=== PATIENT | female | born 1950 | race Caucasian/White ===

== ENCOUNTER 2021-08-24 14:47 | Outpatient (CLI) | payer MEDICARE, MEDICAID, SELFPAY ==
--- NOTE | ~2021-08-24 | MM_ITS ---
EXAMINATION: MM screening [facility]arshal BI w nacho HISTORY: Screening mammogram TECHNIQUE: Craniocaudal and mediolateral oblique 3-D tomosynthesis images were obtained and synthetic 2-D images were generated. CAD analysis was submitted and interpreted. COMPARISON: No prior mammogram is available for comparison at this institution. BREAST PARENCHYMAL COMPOSITION: There are scattered areas of fibroglandular density. FINDINGS: New approximately 4 mm circumscribed mass is noted in the anterior mid to lower inner left breast. Diagnostic left mammogram is recommended, with ultrasound if required. Otherwise no suspicious mass, architectural distortion, calcification, skin thickening or retraction or significant new or developing density of either breast is evident. . IMPRESSION: 1. New 4 mm mass of left breast 2. Diagnostic left mammogram is recommended, with ultrasound if required BI-RADS Category 0: Incomplete: Needs additional imaging evaluation. Reviewed, dictated and finalized at location A.
--- NOTE | ~2021-08-24 | DEXA_ITS ---
Bone Density Report Name: ONEIL CASTILLO Age: 70 Sex: Female Ethnicity: White Date of : 1950 Indication: postmenopausal; screening for osteoporosis; height loss; asthma or emphysema; Referring Provider: OMAR CONNER Study: Bone densitometry was performed. Exam Date: August 24, 2021 Accession number: [id number] Bone Density: Region BMD T-score Z-score Classification AP Spine(L1, L2, L3) 1.008 -0.1 2.1 Normal Femoral Neck (Left) 0.656 -1.7 0.2 Osteopenia Total Hip (Left) 0.912 -0.2 1.4 Normal Femoral Neck (Right) 0.655 -1.8 0.2 Osteopenia Total Hip (Right) 0.850 -0.8 0.9 Normal Total Hip Mean 0.881 -0.5 1.2 Normal World Health Organization criteria for BMD impression classify patients as: Normal (T-score at or above -1.0), Osteopenia (T-score between -1.0 and -2.5), or Osteoporosis (T-score at or below -2.5). 10-year Fracture Risk(1): Major Osteoporotic Fracture 11% Hip Fracture 1.9% Reported Risk Factors: [place] (), Neck BMD=0.656, BMI=35.3 (1) FRAX(R) Version 3.08. Fracture probability calculated for an untreated patient. Fracture probability may be lower if the patient has received treatment. Clinical Information Provided by Patient: Has used the following medications: Vitamin D, Calcium Has the following medical conditions: Asthma or Emphysema Patient maximum height was 58 Menopause Age: 48 Drinks caffeinated beverages Onset of menses at age 12 Number of children 2 Impression: The patient has low bone mass, based on the Right Femoral Neck T-score. The patient has an estimated ten-year risk of hip fracture of 1.9% and an estimated ten-year risk of major fracture of 11%, based on the WHO FRAX algorithm. Discussion: BONE DENSITY IS LOW AT ONE OR MORE SKELETAL SITES. This patient's lowest T-score is low at one or more skeletal sites. It meets the World Health Organization's (WHO) criteria for ?low bone mass? (T-score between -1.0 and -2.5). The patient's 10-year risk of fracture as calculated by FRAX is less than the threshold where pharmacological therapy is recommended by the National Osteoporosis Foundation (NOF). However, all treatment decisions require clinical judgment and consideration of individual patient factors, including patient preferences, comorbidities, previous drug use, risk factors not captured in the FRAX model (e.g., frailty, falls, vitamin D deficiency, increased bone turnover, interval significant decline in bone density) and possible under or overestimation of fracture risk by FRAX. The patient should follow a healthful lifestyle (good nutrition with adequate calcium and vitamin D, and appropriate weight-bearing exercise). Follow-Up: Consider repeating this study in 2 to 3 years to reassess this patient's status, or sooner if there is some n
== END 2021-08-24 14:48 | disposition home or self-care (01) ==
LOC: ANHIMG 14:49
PROVIDERS: PCP Internal Medicine; Visit Provider Nurse Practitioner
DX: Z12.31 Encounter for screening mammogram for malignant neoplasm of breast (principal); Z78.0 Asymptomatic menopausal state; R92.8 Other abnormal and inconclusive findings on diagnostic imaging of breast; M85.89 Other specified disorders of bone density and structure, multiple sites
CPT/HCPCS: 77063; 77067; 77080

== ENCOUNTER 2021-08-30 12:40 | Outpatient (CLI) | payer MEDICARE, MEDICAID, SELFPAY ==
--- NOTE | ~2021-08-30 | MMUS_ITS ---
EXAMINATION: MM diagnostic harshal LT w nacho, US breast LT limited HISTORY: Follow-up left breast mass TECHNIQUE: Additional 3-D tomosynthesis images of the left breast were performed and synthetic 2-D im ages were generated. CAD analysis was submitted and interpreted. High resolution Limited left breast ultrasound was performed. COMPARISON: Comparison to multiple prior studies sequentially, with oldest reviewed study dated 03/05. BREAST PARENCHYMAL COMPOSITION: Breast composed of scattered areas of fibroglandular density FINDINGS: MAMMOGRAPHIC FINDINGS: There is a new mass in the upper inner quadrant of the left breast measuring 4 mm, middle third. No s uspicious calcifications or architectural distortion. ULTRASOUND: Limited left breast ultrasound: At 10:30, 3 cm from the nipple there is a 4 mm cyst corresponding to the mammographic abnormality. No suspicious masses by ultrasound to suggest malignancy. IMPRESSION: 1. No evidence for malignancy in the left breast. Benign finding. 2. Routine yearly screening mammogram and regular clinical breast examination are recommended. BI-RADS Category 2: Benign finding(s). Reviewed, dictated and finalized at location A. IMPRESSION: 1. No evidence for malignancy in the left breast. Benign finding. 2. Routine yearly screening mammogram and regular clinical breast examination a re recommended. BI-RADS Category 2: Benign finding(s).
== END 2021-08-30 12:41 | disposition home or self-care (01) ==
LOC: ANHIMG 12:41
PROVIDERS: PCP Internal Medicine; Visit Provider Nurse Practitioner
DX: R92.8 Other abnormal and inconclusive findings on diagnostic imaging of breast (principal); N60.02 Solitary cyst of left breast; N63.22 Unspecified lump in the left breast, upper inner quadrant
CPT/HCPCS: 76642; 77061; 77065; G0279

== ENCOUNTER 2022-12-06 23:13 | Emergency (ER) | payer MEDICARE, MEDICAID, SELFPAY ==
--- NOTE | 2022-12-06 23:14 | ECG_ITS ---
Measurements Intervals [place] Rate: 68 P: 46 ME: 138 QRS: 40 QRSD: 94 T: 59 QT: 387 QTc: 413 Interpretive Statements SINUS RHYTHM NO PREVIOUS ECG AVAILABLE FOR COMPARISON Electronically Signed On 12-07-2022 9:23:16 CDT by Negra Lovell M.D.
[2022-12-06 23:28] VITALS: BP 125/90; PULSE 69; RESP 12; TEMP 36.8; O2SAT 96
--- NOTE | 2022-12-07 | PC.NURSE ---
pt. family member up to front services agent stating, We are going to go to the doctor later. pt. wheeled out of ed. NAD
== END 2022-12-07 | disposition left against medical advice (07) ==
PROVIDERS: PCP Nurse Practitioner
DX: M25.512 Pain in left shoulder (principal)
CPT/HCPCS: 93005; 99199

== ENCOUNTER 2023-05-06 08:32 | Outpatient (CLI) | payer MEDICARE, MEDICAID, SELFPAY ==
--- NOTE | ~2023-05-06 | MM_ITS ---
EXAMINATION: MM screening [facility] BI w nacho HISTORY: Screening mammogram TECHNIQUE: Craniocaudal and mediolateral oblique 3-D tomosynthesis images were obtained and synthetic 2-D images were generated. CAD analysis was submitted and interpreted. COMPARISON: 08/30/2021, 08/24/2021, 03/16/2015 BREAST PARENCHYMAL COMPOSITION: The breasts are almost entirely fatty. FINDINGS: No suspicious mass, calcification, or architectural distortion are identified in either elvin ast to suggest malignancy. There has been no suspicious interval change. IMPRESSION: 1. No mammographic evidence of malignancy. 2. Recommend routine screening mammography in one year. BI-RADS Category 1: Negative Reviewed, dictated and finalized at location A. NESS INTELLIGENCE ANALYST
[2023-05-06 10:33] LABS: Vitamin D 25 Hydroxy 42.3 ng/mL
[2023-05-06 11:09] LABS: Alanine Aminotransferase 21 U/L (6-35); Albumin Level 4.3 g/dL (3.5-5.1); Alkaline Phosphatase 120 U/L (38-126); Anion Gap 9 mmol/L (8-16); Aspartate Amino Transferase 30 U/L (14-36); Bilirubin,Total 0.6 mg/dL (0.2-1.3); Blood Urea Nitrogen 21 mg/dL (7-17); Calcium 9.4 mg/dL (8.4-10.2); Carbon Dioxide 26 mmol/L (22-30); Chloride 107 mmol/L (98-107); Cholesterol 168 mg/dL (0-200); Estimated Glomerular Filt Rate > 60; Glucose 92 mg/dL (65-110); HDL Direct 49 mg/dL; Potassium 4.4 mmol/L (3.4-5.0); Sodium 142 mmol/L (137-145); Triglycerides 123 mg/dL (<150)
[2023-05-06 11:19] LABS: LDL Cholesterol Direct 83 mg/dL
== END 2023-05-06 08:33 | disposition home or self-care (01) ==
PROVIDERS: PCP Nurse Practitioner; Visit Provider Nurse Practitioner
DX: Z12.31 Encounter for screening mammogram for malignant neoplasm of breast (principal); E78.5 Hyperlipidemia, unspecified; E55.9 Vitamin D deficiency, unspecified
CPT/HCPCS: 36415; 77063; 77067; 80053; 80061; 82306

== ENCOUNTER 2023-10-21 12:58 | Outpatient (CLI) | payer MEDICARE, MEDICAID, SELFPAY | END 2023-10-21 12:59 | disposition home or self-care (01) | LOC: ANHAUDIO 12:59 | PROVIDERS: PCP Nurse Practitioner; Visit Provider Otolaryngology | DX: H93.19 Tinnitus, unspecified ear (principal); H90.3 Sensorineural hearing loss, bilateral | CPT/HCPCS: 92557; 92567 ==

== ENCOUNTER 2023-12-04 10:25 | Outpatient (CLI) | payer MEDICARE, MEDICAID, SELFPAY ==
--- NOTE | 2023-12-04 11:12 | ECG_ITS ---
Test Date: 2023-12-04 11:21:41 Measurements Intervals [place] Rate: 75 P: 59 CA: 150 QRS: 61 QRSD: 94 T: 69 QT: 383 QTc: 429 Interpretive Statements SINUS RHYTHM NORMAL ELECTROCARDIOGRAM No previous ECG available for comparison Electronically Signed On 12-05-2023 10:57:18 CDT by Gallo Srivastava M.D.
[2023-12-04 11:56] LABS: Hematocrit 41.1 % (37.0-47.0); Hemoglobin 13.8 g/dL (12.0-15.0); Mean Corpuscular HGB Conc 33.6 g/dl (32-36); Mean Corpuscular Hemoglobin 31.5 pg (26-34); Mean Corpuscular Volume 93.8 fl (80-100); Mean Platelet Volume 10.8 fl (7.4-10.4); Platelet Count Result 209 k/mm3 (150-375); Red Blood Count 4.38 M/mm3 (4.2-5.4); Red Cell Distribution Width 12.6 % (11.5-14.5); White Blood Count 4.7 K/mm3 (4.5-10.0)
[2023-12-04 12:08] LABS: Alanine Aminotransferase 20 U/L (6-35); Albumin Level 4.9 g/dL (3.5-5.1); Alkaline Phosphatase 118 U/L (38-126); Anion Gap 12 mmol/L (4-12); Aspartate Amino Transferase 32 U/L (14-36); Bilirubin,Total 0.7 mg/dL (0.2-1.3); Blood Urea Nitrogen 29 mg/dL (7-17); Calcium 9.6 mg/dL (8.4-10.2); Carbon Dioxide 27 mmol/L (22-30); Chloride 100 mmol/L (98-107); Cholesterol 170 mg/dL (0-200); Estimated Glomerular Filt Rate 54; Glucose 92 mg/dL (65-110); HDL Direct 42 mg/dL; Potassium 4.5 mmol/L (3.4-5.0); Sodium 139 mmol/L (137-145); Triglycerides 168 mg/dL (<150)
[2023-12-04 12:18] LABS: LDL Cholesterol Direct 82 mg/dL
[2023-12-04 14:21] LABS: Urine Cotinine NEGATIVE
== END 2023-12-04 10:26 | disposition home or self-care (01) ==
PROVIDERS: PCP Nurse Practitioner; Visit Provider Orthopaedic Surgery
DX: E78.5 Hyperlipidemia, unspecified (principal); I10 Essential (primary) hypertension; Z79.899 Other long term (current) drug therapy
CPT/HCPCS: 36415; 80053; 80061; 80307; 85027; 93005

== ENCOUNTER 2024-02-23 09:57 | Outpatient (CLI) | payer MEDICARE, MEDICAID, SELFPAY ==
[2024-02-23 12:57] LABS: Basophils Absolute Auto 0.1 K/mm3 (0.0-0.1); Basophils Percent Auto 0.6 % (0.2-1.2); Eosinophils Absolute Auto 0.2 K/mm3 (0-0.3); Eosinophils Percent Auto 2.1 % (0-4.4); Hematocrit 41.4 % (37.0-47.0); Hemoglobin 13.8 g/dL (12.0-15.0); Immature Granulocyte Absolute 0.03 K/mm3 (0.00-0.031); Immature Granulocyte Percent A 0.4 % (0-0.5); Lymphocytes Absolute Auto 1.92 K/mm3 (0.9-3.2); Lymphocytes Percent Auto 23.9 % (18.3-44.2); Mean Corpuscular HGB Conc 33.3 g/dl (32-36); Mean Corpuscular Hemoglobin 31.2 pg (26-34); Mean Corpuscular Volume 93.7 fl (80-100); Mean Platelet Volume 11.4 fl (7.4-10.4); Monocytes Absolute Auto 0.7 K/mm3 (0.1-0.6); Monocytes Percent Auto 9.1 % (2.6-8.5); Neutrophils Absolute Auto 5.1 K/mm3 (1.3-6.7); Neutrophils Percent Auto 63.9 % (45.5-73.1); Platelet Count Result 220 k/mm3 (150-375); Red Blood Count 4.42 M/mm3 (4.2-5.4); Red Cell Distribution Width 13.8 % (11.5-14.5)
[2024-02-23 13:20] LABS: Urine Cotinine NEGATIVE
[2024-02-23 13:21] LABS: Anion Gap 14 mmol/L (4-12); Blood Urea Nitrogen 30 mg/dL (7-17); Calcium 10.1 mg/dL (8.4-10.2); Carbon Dioxide 22 mmol/L (22-30); Chloride 100 mmol/L (98-107); Estimated Glomerular Filt Rate 54; Glucose 77 mg/dL (65-110); Potassium 4.6 mmol/L (3.4-5.0); Sodium 136 mmol/L (137-145)
[2024-02-23 13:27] LABS: Hemoglobin A1C 5.7 % (<5.7)
[2024-02-23 14:19] LABS: Albumin Level 4.9 g/dL (3.5-5.1)
[2024-02-23 14:31] LABS: MRSA (PCR) NOT DETECTED (NOT DETECTE)
== END 2024-02-23 09:58 | disposition home or self-care (01) ==
LOC: ANHSURGERY 10:04
PROVIDERS: Anesthesiology; PCP Nurse Practitioner; Visit Provider Orthopaedic Surgery
DX: M17.11 Unilateral primary osteoarthritis, right knee (principal); I10 Essential (primary) hypertension
CPT/HCPCS: 36415; 80048; 80307; 82040; 83036; 85025; 87641

== ENCOUNTER 2024-03-15 00:27 | Day surgery (SDC) | payer MEDICARE, MEDICAID, SELFPAY ==
[2024-02-23 10:10] VITALS: BMI 37.0
--- NOTE | 2024-02-23 10:37 | PC.NURSE ---
Report to the Outpatient Waiting Room, entrance under the green pavilion located off [facility], at time _10 AM on date 03/15/24 . Planned Procedure Time: __12 PM___NOON___.? Time changes happen often and if your time is changed the preop area will call you the afternoon before. - You and your visitor will be asked to self-screen and do not enter if you have any COVID symptoms. Please call surgeon if you need to reschedule. - A mask is optional within the hospital at this time. Patients may have clear liquids (water, carbonated beverages, clear teas, apple juice) until 3 hours prior to surgery( 9 AM) with a maximum of 20 ounces. - No food from midnight until time of surgery and no smoking - Infants may have breast milk until 4 hours before surgery, infant formula 6 hours prior to surgery. - Children will be allowed to drink immediately following surgery.? If applicable, please bring a bottle or sippy cup to assist with drinking. Juice, water, soda, and popsicles are readily available.? For infants on formula, please bring formula the day of surgery.? Pacifiers are allowed. Take only the following medications with a SIP of water on the morning of surgery: ___ANORO INHALER DO NOT STOP ANY OF YOUR OTHER PRESCRIPTION MEDICATIONS PRIOR TO SURGERY EXCEPT THE FOLLOWING Medications to discontinue per physician _PATIENT'S DAUGHTER EDGAR STATES HOLD ALL VITAMINS 7 DAYS PRE OP PER DR MUHAMMAD.LAST DOSE03/07/24 MAY CONTINUE CELEBREX MAY TAKE TYLENOL IF NEEDED FOR PAIN Please no make-up, nail [place] islander, hairspray, perfume, deodorant, or body powder the day of surgery.? No jewelry (including any body piercings) or valuables the day of surgery, leave them at home.? Please take a shower or bath the night before, or the morning of, surgery with an antibacterial soap.? Wear comfortable, loose fitting clothing.? Children are encouraged to wear pajamas. - Jewelry must be removed prior to entering the operating room.? Rings and piercings that are not removed may be cut off. - The hospital will not accept responsibility for valuables.? - Please leave all valuables, including medications, at home the day of surgery. If you are going home after surgery, a licensed route driver must drive you home.? - NO public transportation without another adult if you receive anesthesia. - We recommend that an adult stay with you for 24 hours following discharge. - We also recommend that you do not drive, make important decision, drink alcoholic beverages, or take any drugs that were not prescribed by your health care provider for at least 24 hours after your discharge time. Follow any additional instructions given to you from your surgeon. VERBAL AND WRITTEN instructions given to __PATIENT AND DAUGHTER EDGAR and asked if any additional questions and then verbalized understanding. Patient advised to call surgeon office or pre surgery nurse liaison [phone] if any additional questions.
[2024-02-23 10:57] VITALS: BP 118/73; PULSE 78; RESP 18; TEMP 36.8; O2SAT 97
[2024-03-15] VITALS (14 sets, daily range): BP systolic 135–174; BP diastolic 61–100; PULSE 69–102; RESP 10–20; TEMP 36.1–37; O2SAT 92–100
--- NOTE | ~2024-03-15 | XR_ITS ---
EXAMINATION: [id number] DATE: 03/15/2024 15:05 INDICATION: Postoperative evaluation following right total knee arthroplasty. TECHNIQUE: Anteroposterior and lateral views of the right knee were obtained. COMPARISON: None. FINDINGS: Right total knee arthroplasty with patellar resurfacing appears well seated and in near anatomic alig nment. No fractures identified. Expected postoperative subcutaneous and intra-articular gas. IMPRESSION: 1. Right total knee arthroplasty, negative for postoperative purposes. Reviewed, dictated and finalized at location [facility]
[2024-03-15] MEDS: ACETAMINOPHEN 500 MG TABLET 1000 MG PO (11:37)
[2024-03-15] MEDS: LACTATED RINGERS 1,000 ML 30 ML IV CONT ×2 (11:37→14:25)
--- NOTE | 2024-03-15 12:02 | WPDHPUPDATE1 ---
History and Physical Update Update Date/Time: 03/15/24 12:02 History and Physical has been reviewed, including an updated exam of the patient. There are NO changes in the patient's condition. Risks, benefits, and alternatives have been discussed and questions answered. Patient agrees to proceed with procedure.
--- NOTE | 2024-03-15 12:15 | WPDANESEPPF ---
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 Patient Data Age: 73 Gender: F Height: 1.42 m Weight: 75.6 kg Last Vital Signs Temp 98.0 F 03/15/24 11:19 Pulse 69 03/15/24 11:19 Resp 16 03/15/24 11:19 BP 135/61 03/15/24 11:19 Pulse Ox 99 03/15/24 11:19 O2 Del Method Room Air 03/15/24 11:19 Allergies Allergy/AdvReac Type Severity Reaction Status Date / Time citrus fruit AdvReac Severe erythema Uncoded 03/15/24 11:17 to face Home Medications Medication Instructions Recorded Confirmed Type albuterol sulfate 90 mcg/actuation 2 inh inhalation Q4H PRN shortness 11/18/23 03/15/24 Rx aerosol inhaler of breath or wheezing #8.5 grams celecoxib 200 mg capsule See Rx Instructions .Route 11/18/23 03/15/24 Rx .COMPLEX #180 caps lisinopril 20 See Rx Instructions .Route 11/18/23 03/15/24 Rx mg-hydrochlorothiazide 25 mg tablet .COMPLEX #90 tabs omeprazole 40 mg capsule,delayed See Rx Instructions .Route 11/18/23 03/15/24 Rx release .COMPLEX #90 caps rosuvastatin 10 mg tablet See Rx Instructions .Route 11/18/23 03/15/24 Rx .COMPLEX #90 tabs umeclidinium 62.5 mcg-vilanterol See Rx Instructions .Route 11/18/23 03/15/24 Rx 25 mcg/actuation powdr for .COMPLEX #60 ea inhalation (Anoro Ellipta) montelukast 10 mg tablet See Rx Instructions .Route 12/23/23 03/15/24 Rx .COMPLEX #90 tabs acetaminophen 650 mg 650 mg PO Q12H PRN Pain 02/23/24 03/15/24 History tablet,extended release loratadine 10 mg tablet (Claritin) 10 mg PO DAILY 02/23/24 03/15/24 History multivitamin (Daily Multi-Vitamin 1 tablet PO DAILY 02/23/24 03/15/24 History tablet) aspirin 81 mg tablet,delayed 81 mg PO BID 14 days #28 tabs 03/15/24 Rx release oxycodone-acetaminophen 5 mg-325 1 - 2 tablet PO Q4-6H PRN pain #30 03/15/24 Rx mg tablet tabs prednisone 5 mg tablet 5 mg PO DAILY 3 weeks #21 tabs 03/15/24 Rx Laboratory Tests 03/15/24 10:37 Blood Type B Positive Antibody Screen Negative Patient hx anesthesia problems: none Family hx anesthesia problems: none Results Review: All pre-operative results and documents have been reviewed as part of the pre-operative evaluation. [facility] Past Medical History Medical History Asthma Bilateral leg weakness GERD (gastroesophageal reflux disease) Hypertension Screening for colon cancer Surgical History Surgical History Hx of cataract removal with insertion of prosthetic lens 2021 Family History Family History Mother Hypertension Patient's mother is in good health Family history of elevated blood lipids Social History Social History (Updated 02/18/24 @ 09:03 by Tess Castellanos CMA) Smoking status: Never smoker Second hand tobacco smoke exposure: Yes Additional smoking assessment comments: DENIES ANY FORM OF TOBACCO USE Alcohol intake: never Substance use: never Substance use type: does not use Do You Feel Safe in your Home?: Yes Lack of Transportation: No Lack of Food: Never True Current Housing: I Have Housing Concerned About Future Housing: No Difficulty Paying Gas/Electric Bills: No Difficulty Paying for Meds: No Currently Unemployed: No Education: High School Diploma/GED Difficulty w/ Childcare or Family Care: No Living arrangements: alone Spiritual care concerns: No Anes - Eval Final PreProcedure Day of Procedure 03/15/24 12:15 Patient weight: obese Heart: regular rate and rhythm Lungs: clear to auscultation Airway: Mallampati scale class III Neurological: alert and oriented Last oral intake: >/= 8 hours ASA classification: III Emergent: no Anesthetic plan: proceed Anesthesia type and monitoring: general LMA and standard monitoring Results Review: All pre-operative results and documents have been reviewed as part of the pre-operative evaluation. Informed Consent: The patient's anesthetic plan and its attendant risks and benefits were discussed with the patient/family/POA. Questions were solicited and answers provided to the satisfaction of the patient/family/POA.
[2024-03-15] MEDS: TRANEXAMIC ACID 1,000MG/ISO100 1,000 MG/100 ML BAG 200 MG IVPB (12:20)
[2024-03-15] MEDS: ceFAZolin 2 GM/D5W 50 ML 2 GM/50 ML BAG IVPB ×2 (12:20→20:26)
[2024-03-15] MEDS: SODIUM CHLORIDE 0.9% IV 37.7 ML, MORPHINE SULFATE INJ (*CRX) 2 MG, ROPivacaine HCL 1% 2... INFILTRATE (12:54)
[2024-03-15] MEDS: GENTAMICIN BONE CEMENT REFOBACIN 1 EACH TOPICAL (13:45)
[2024-03-15] MEDS: fentaNYL CITRATE INJ (*CRX) 100 MCG/2 ML VIAL 25 MCG IV PUSH ×5 (14:38→15:22)
--- NOTE | 2024-03-15 15:01 | P.OP_ITS ---
Procedure Note - Detailed Date of Procedure 03/15/24 Pre-op Diagnosis Right knee degenerative arthritis. Post-op Diagnosis Same Procedure Performed Calipered, kinematically aligned total knee replacement right knee. Surgeon Keith Benavides MD Cyber Instructor Marissa Head PA-C Anesthesia General Findings According to the calipered kinematic alignment principles, the knee was balanced by the following verification checks incorporating 6 caliper measurements, using an insert goniometer to select the insert thickness, and adjusting the tibial resection following the kinematic alignment algorithm (see figure 160.10 published in [facility] [facility] chapter on kinematic alignment total knee arthroplasty.) The steps verified the femoral and tibial components were kinematically aligned coincident to the patient's pre arthritic joint lines, which closely restored the shinnecock tibial compartment forces and ligament laxities without ligament release. The [employer] Sensors[employer] pSiFlow TechnologyriKA knee, designed specifically for kinematic alignment, fit optimally. The record of verification checks were documented and scanned into the chart. Distal Femoral Resection: Distal Medial 6 mm(cartilage worn), Distal Lateral 8 mm Target thickness of 8mm Unworn, 6mm Worn (No Cartilage). Posterior Femoral Resection: Posterior Medial 5 mm(cartilage worn), Posterior Lateral 7 mm. Target thickness of 7mm Unworn, 5mm Worn (No Cartilage). Description of Procedure General anesthesia was administered. A well-padded tourniquet was placed high on the thigh. The limb was prepped and draped in the usual sterile fashion. The limb was exsanguinated and the tourniquet inflated to 300 mmHg. A longitudinal incision was created over the midline of the knee. Sharp dissection was taken through subcutaneous tissues. Electrocautery was used for hemostasis. A trivector approach to the knee joint was performed. The ACL, anterior horns of the menisci, and fat pad were excised, and a subperiosteal dissection was carried along the posterior medial border of the tibia. The thickness of the shinnecock patella was measured with a caliper. The patella was resected using the oscillating saw. The best fitting anatomic patella button was selected. The fixation holes were drilled. When the patella and patella buttons combined thickness was thicker than the shinnecock patella, the patella was recut. Starting midway between the top of the notch in the anterior femoral cortex, I drilled a 9 mm diameter hole parallel to the anterior cortex to minimize flexion of the femoral component and promote patella tracking. I verified the existence of a 5-10 mm bone bridge between the posterior aspect of the hole and the anterior limit of the intercondylar notch. An intraosseous positioning mike was inserted 10 cm into the femur perpendicular to the distal joint line and parall el to the anterior cortex. I used a distal femoral referencing guide that compensated 2 mm when the cartilage was worn on the distal medial femoral condyle, and 2 mm when the cartilage was worn on the distal lateral femoral condyle. The basis for setting the distal and posterior femoral resection guide is knowing that the varus and valgus grade II to IV Kellegren-Ozzie osteoarthritic knees have negligible bone wear at 0? and 90? and that the mean full-thickness cartilage wear approximates 2 mm. I measured the thickness of distal femoral resections with a caliper to +/- 0.5 mm. The thickness of each resection was adjusted to match the thickness of the respective condyle of the femoral component within 0.5 mm of target after compensating for cartilage wear and kerf. When the distal r esection was 1-2 mm too thin, a recut guide was used to adjust the cut. When the distal resection was too thick, a 1 or 2 mm thick washer was fixed to the back of the 4-in-1 chamfer block to hank a corrective gap between the femoral component and distal femur. I set posterior femoral referencing guide at 0? orientation to position the pin holes for the 4 in 1 chamfer block. The andreia wing measured the width of the distal femoral resection and selected the size of the 4 in 1 chamfer block and femoral component. The AP sizer confirmed the size. I measured the thickness of the posterior femoral resections with a caliper before making the anterior and chamfer cuts. I adjusted the thicknesses of each resection to match the thickness of the respective condyle of the femoral component within +/-0.5 mm after compensating for cartilage wear and curve. When a posterior resection femoral resection was 1-2 mm too thick or thin a corrective correction was made by shifting or rotating the 4 in 1 chamfer block as needed. The chamfer block was secured in the correct position with compression screws. The anterior and chamfer femoral resections were made. These caliper measurements and tiago ections verified that the femoral component was set coincident with the patient's pre-arthritic distal and posterior femoral joint lines. I removed all the medial and lateral femoral and tibial osteophytes to restore the pre arthritic length of the medial and lateral collateral ligaments. I celi AP lines along the major axis of the lateral tibial plateau in between the tibial spines which identified the flexion extension plane of the knee. A conventional extramedullary tibial resection guide was applied to the ankle. An andreia wing was placed medially in the saw slot. The varus valgus angle of the tibial resection guide was adjusted until the guide paralleled the proximal tibial articular surface after compensating for cartilage and bone wear. The slope of flexion extension angle of the tibial resection guide was adjusted until the andreia wing paralleled the slope of the medial tibia after compensating for wear. The AP axis of the tibial resection guide was adjusted parallel to th e two lines. The proximal tibia was resected, partially releasing the insertion of the posterior cruciate ligament. The thickness of the medial and lateral lateral tibial condyle was measured at the base of the tibial spines. I visually verified the slope of the medial border of the resection was parallel to the patient's pre arthritic slope after compensating for cartilage and bone wear. I removed the remnants of the posterior horns of the menisci and posterior osteophytes and cauterized the inferior lateral genicular vessels. The Aquamantys bipolar device was also used to for additional hemostasis. When the knee had a preoperative flexion contracture of 20? or more I teased the capsule off the posterior femur with a curved 3 quarter-inch osteotome. I administered the posterior femoral periosteal injection by delivering 10 cc using a 20 gauge spinal needle at the most medial and 10 cc at the most lateral femoral spur surface which reduced the risk of injury to the posterior neurovascular structures. I followed 6 options in a decision tree to fine tune the varus valgus and posterior slope orientation of the tibial component to restore the patient's pre arthritic tibial joint line and limb alignment. First, I adjusted the varus- valgus orientation of the proximal tibia resection working in 1 degree to 2 degree increments until there was negligible medial and lateral lift off of the distal femoral and proximal tibial resection from the spacer block during a varus valgus laxity assessment in extension. I selected the largest anatomic shape trial tibial base plate that fit within the cortical boundary of the proximal tibial resection. The base plate was best fit parallel to the cortical boundary which set the Internal-external orientation of the anterior to posterior and medial to lateral positions. The best fit method set the AP axis of the tibial base plate and insert parallel to the flexion extension plane of the pre arthritic knee. I pinned the trial t ibial base plate, prepared the cruciate slot, and fixed the base plate to the tibia with the cruciate stem. I inserted the trial femoral component. The knee was placed in full extension. Varus valgus laxity is of the knee with trial components were assessed. When asymmetric laxity was observed a 1-2 degree varus or valgus recut guide was used to fine tune the tibial resection until the laxity was 1 degree or less in full extension like the shinnecock knee. The following steps determined the optimal insert thickness within +/-1 mm. First I inserted an insert goniometer that matched the thickness of the spacer block. I reduced the patella and then with the knee in maximum extension, I verified the knee hyperextended a few degrees and had negligible varus valgus laxity, like the pre arthritic knee. He required a release of the posterior lateral capsule. Next, I measured the external tibial orientation which was the angle the insert goniometer intersected the sagittal line on the medial condyle of the femoral trial component. Then with the knee in 15-30 degrees flexion I verified a 3-4 mm gap in the lateral compartment and no gap in the medial compartment during a 2nd varus valgus laxity test. Next, I placed the knee in 90? of flexion and the foot resting on the operating table and measured the internal tibial orientation. I repeated the steps until I identified the insert thickness that provided the highest external tibia orientation in extension and the highest internal tibial orientation at 90? flexion without anterior lift-off of the insert from the tibial base plate. The insert with this thickness was implanted. I applied a posterior drawer test with the tibia distracted by gravity and verified no posterior subluxation of the tibia relative to the femur. The patella remained centered on the trochlea and tracked well throughout the entire arc of flexion and extension. I used pulse lavage to clean the bony surfaces of debris and dried bone. I cemented the tibial, femoral, and patellar components using 1 bag of methylmethacrylate with Gentamycin, then rechecked the stability at full extension, 15-30 degrees, and 90? flexion and verified muslim of the entire arc of motion of the knee. The circulating nurse confirmed the sponge and needle counts were correct. I used pulse lavage to rinse the joint and wound. The extensor mechanism was closed with interrupted #1 Vicryl suture and #1 running Stratafix suture. The subcutaneous layer was closed with interrupted #1 Vicryl suture followed by 2-0 Stratafix and 3-0 Stratafix. Steri-Strips placed on the skin. Silver impregnated occlusive dressing applied to the wound. A light gauze wrap and Virgilio bandage were placed. The patient was transferred to the recovery room in stable condition. There were no complications. Implants Medacta GMK spheriKA Femoral component SpheriKA size 3+, tibial component size 2, vitamin-E flex insert, thickness 10mm, Anatomic patella implant size 2. Estimated Blood Loss 50 Drains No Pathology None sent Complications No immediate complications Condition Stable Disposition PACU [facility] Billing Surgery - Charge Forward: Surgery Billing
[2024-03-15] MEDS: HYDROmorphone HCL INJ (*CRX) 1 MG/ML SYR 0.5 MG IV PUSH ×2 (15:28→15:34)
--- NOTE | 2024-03-15 16:20 | ADMGEN ---
This patient, Duyen Marie, was admitted to 2 Medical Room 260-01. Patient/family oriented to hospital policies and general routines including ID bracelet, bed and alarms, visiting hours, pain management, procedures, bathroom and other care routines, personal items, smoking policy, room service/diet, and visiting hours. Information on how to activate the Rapid Response Team has been discussed. Patient/Family are encouraged to report perceived risks to care and to ask questions if they do not understand what they are told or what they should do.
[2024-03-15] MEDS: ONDANSETRON INJ 4 MG/2 ML VIAL IV PUSH (16:44)
--- NOTE | 2024-03-15 17:25 | P.CONIM_ITS ---
Assessment and Plan Assessment and plan (1) Degenerative joint disease of right knee: Qualifiers: Osteoarthritis type: primary Qualified Code(s): M17.11 - Unilateral primary osteoarthritis, right knee Code(s): M17.11 - Unilateral primary osteoarthritis, right knee Status: Acute Assessment and Plan: Postoperative day 0 status post right total knee arthroplasty. Wound care, pain control, and DVT prophylaxis deferred to primary service. Check baseline labs in a.m.. PT/OT consulted. (2) Post-operative nausea and vomiting: Code(s): R11.2 - Nausea with vomiting, unspecified; Z98.890 - Other specified postprocedural states Status: Acute Assessment and Plan: Ondansetron does not seem to be helping; try phenergan x1. Continue IV fluids for now. (3) Asthma: Code(s): J45.909 - Unspecified asthma, uncomplicated Status: Acute Assessment and Plan: No acute issues postoperatively. Continue maintenance inhalers. (4) Hypertension: Code(s): I10 - Essential (primary) hypertension Status: Acute Assessment and Plan: Blood pressures were reviewed and they have been a bit elevated postoperatively, likely due to pain. Continue lisinopril-hydrochlorothiazide and monitor closely. (5) Gastroesophageal reflux disease: Code(s): K21.9 - Gastro-esophageal reflux disease without esophagitis Status: Acute Assessment and Plan: Continue PPI. (6) Mixed hyperlipidemia: Code(s): E78.2 - Mixed hyperlipidemia Status: Acute Assessment and Plan: Continue receive stent and check LFTs. Plan Thank you for allowing us to participate in this patient's care. Please do not hesitate to contact us with any questions. HPI Date of Consult Consult date: 03/15/24 Requesting Physician: Keith Benavides MD Primary Care Provider: Eric Melgar APRN Consult Narrative Reason for consult: medical management Narrative: This is a 73-year-old female with degenerative arthritis, hypertension, dyslipidemia, gastroesophageal reflux disease, and asthma whom the hospitalist service has been consulted for help managing her medical conditions postoperatively. She presented today for elective right knee replacement due to ongoing pain despite conservative outpatient treatment. Her surgery was performed under general anesthesia with no immediate complications documented and an estimated blood loss of a 50 mL. Unfortunately she has had quite a bit of nausea and vomiting postoperatively and Zofran does not seem to be helping. She also complains a frontal headache with mild photophobia. Her knee pain is pretty well controlled. She denies fever, chills, sweats, chest pain, shortness of breath, and visual changes. Regarding her chronic medical conditions, they seem to be well controlled on her current regimen. Review of Systems Review of Systems: 12 systems were reviewed and are negativ e except for as per HPI. FOR[facility]LY [facility], LATER [facility] Past Medical History Medical History Arthritis Asthma Gastroesophageal reflux disease Hypertension Mixed hyperlipidemia Surgical History Surgical History History of cataract extraction with lens replacement (2021) History of dilation and curettage History of total right knee replacement (03/15/24) History of tubal ligation Family History Family History Mother Hypertension Patient's mother is in good health Family history of elevated blood lipids Social History Social History Social History: Surrogate medical decision maker: Shara Cruz, daughter. Code status: Full code. Smoking status: Never smoker Second hand tobacco smoke exposure: Yes Alcohol intake: never Substance use: never Substance use type: does not use Do You Feel Safe in your Home?: Yes Lack of Transportation: No Lack of Food: Never True Current Housing: I Have Housing Concerned About Future Housing: No Difficulty Paying Gas/Electric Bills: No Difficulty Paying for Meds: No Currently Unemployed: No Education: High School Diploma/GED Difficulty w/ Childcare or Family Care: No Spiritual care concerns: No Meds Home Medications and Allergies Home Medications Medication Instructions Recorded Confirmed Type albuterol sulfate 90 mcg/actuation 2 inh inhalation Q4H PRN shortness 11/18/23 03/15/24 Rx aerosol inhaler of breath or wheezing #8.5 grams acetaminophen 650 mg 650 mg PO Q12H PRN Pain 02/23/24 03/15/24 History tablet,extended release loratadine 10 mg tablet (Claritin) 10 mg PO DAILY 02/23/24 03/15/24 History multivitamin (Daily Multi-Vitamin 1 tablet PO DAILY 02/23/24 03/15/24 History tablet) aspirin 81 mg tablet,delayed 81 mg PO BID 14 days #28 tabs 03/15/24 Rx release celecoxib 200 mg capsule 200 mg PO DAILY 03/15/24 03/15/24 History lisinopril 20 1 tablet PO DAILY 03/15/24 03/15/24 History mg-hydrochlorothiazide 25 mg tablet montelukast 10 mg tablet 10 mg PO DAILY 03/15/24 03/15/24 History omeprazole 40 mg capsule,delayed 40 mg PO DAILY 03/15/24 03/15/24 History release oxycodone-acetaminophen 5 mg-325 1 - 2 tablet PO Q4-6H PRN pain #30 03/15/24 Rx mg tablet tabs prednisone 5 mg tablet 5 mg PO DAILY 3 weeks #21 tabs 03/15/24 Rx rosuvastatin 10 mg tablet 10 mg PO DAILY 03/15/24 03/15/24 History umeclidinium 62.5 mcg-vilanterol 1 ea inhalation DAILY 03/15/24 03/15/24 History 25 mcg/actuation powdr for inhalation (Anoro Ellipta) Allergies Allergy/AdvReac Type Severity Reaction Status Date / Time citrus fruit AdvReac Severe erythema Uncoded 03/15/24 11:17 to face Vital Signs Vital Signs - 24 hr 03/15/24 11:19 03/15/24 14:25 03/15/24 14:40 Temperature 98.0 F 98.6 F Pulse Rate 69 102 H 102 H Respiratory Rate 16 17 18 Blood Pressure 135/61 164/100 H 158/88 H Pulse Oximetry 99 100 100 Oxygen Delivery Room Air Simple Face Mask Simple Face Mask Oxygen Flow Rate 8 8 03/15/24 14:55 03/15/24 15:10 03/15/24 15:25 Temperature Pulse Rate 89 99 93 Respiratory Rate 18 20 12 Blood Pressure 153/87 H 173/74 H 159/83 H Pulse Oximetry 100 95 94 Oxygen Delivery Simple Face Mask Room Air Room Air Oxygen Flow Rate 8 03/15/24 15:40 03/15/24 15:55 03/15/24 16:03 Temperature 97.7 F Pulse Rate 98 93 92 Respiratory Rate 10 L 10 L 14 Blood Pressure 145/74 H 141/73 H 136/81 Pulse Oximetry 95 94 97 Oxygen Delivery Room Air Room Air Room Air Oxygen Flow Rate Exam Narrative: General: Moderately ill-appearing female with active vomiting. Weight: 75.6 kg. BMI: 37.4. HEENT: Normocephalic, atraumatic. PERRL, EOMI. Sclera anicteric. Dry mucous membranes. Neck: Supple. Respiratory: Lungs are clear to auscultation bilaterally. Cardiovascular: Regular rate and rhythm with S1-S2. Gastrointestinal: Abdomen is soft, nontender, and nondistended with positive bowel sounds. Skin: Warm and dry. No rash or lesions on limited exam. Extremities: No cyanosis, clubbing, or edema. Radial and pedal pulses intact. Musculoskeletal: Right knee dressing is clean, dry, and intact. She is neurovascularly intact distal to the surgical site. Neurological: Alert. Cranial nerves 2-12 grossly intact. No gross focal deficits to casual conversation. Psychiatric: Pleasant and cooperative with appropriate mood and affect. Hospitalist MIPS Advance Care Plan I have confirmed that the patient's Advanced Care Plan is present, code status is documented, or surrogate decision maker is listed in patient medical record.: Yes Medication Reconciliation I have utilized all available resources to obtain, update and review the patients current medications (includes all prescriptions, OTC, herbals, cannabis, and nutritional supplements).: Yes
[2024-03-15] MEDS: PANTOPRAZOLE 40 MG TABLET PO (17:50)
[2024-03-15] MEDS: SODIUM CHLORIDE 0.9% IV 1,000 ML 125 ML IV CONT (17:50)
[2024-03-15] MEDS: ACETAMINOPHEN 325 MG TABLET 650 MG PO ×2 (17:50→23:27)
[2024-03-15] MEDS: SENNA/DOCUSATE SODIUM TABLET 2 TAB PO (17:50)
[2024-03-15] MEDS: predniSONE 5 MG TABLET PO (17:50)
[2024-03-15] MEDS: PROMETHAZINE HCL 25 MG/ML AMPUL 12.5 MG IV PUSH (20:14)
[2024-03-15] MEDS: oxyCODONE/ACETAMINOPHEN (*CRX) 5-325 MG TABLET 1 TABLET PO (20:36)
[2024-03-15] MEDS: ROSUVASTATIN 10 MG TABLET BY MOUTH (21:25)
[2024-03-15] MEDS: CELECOXIB 200 MG CAPSULE PO (21:26)
[2024-03-15] MEDS: MONTELUKAST SODIUM 10 MG TABLET BY MOUTH (21:26)
[2024-03-15] MEDS: FAMOTIDINE 20 MG TABLET PO (21:27)
[2024-03-15] MEDS: ASPIRIN 81 MG ENTERIC TABLET PO (21:27)
[2024-03-16 01:07] VITALS: BP 141/84; PULSE 100; RESP 18; TEMP 36.3; O2SAT 98
[2024-03-16] MEDS: ceFAZolin 2 GM/D5W 50 ML 2 GM/50 ML BAG IVPB ×2 (03:42→12:47)
[2024-03-16] MEDS: ACETAMINOPHEN 325 MG TABLET 650 MG PO ×2 (05:31→12:47)
[2024-03-16 05:48] VITALS: BP 142/76; PULSE 93; RESP 20; TEMP 36.7; O2SAT 99
[2024-03-16 06:09] LABS: Basophils Percent Auto 0.2 % (0.2-1.2); Hematocrit 33.2 % (37.0-47.0); Hemoglobin 11.3 g/dL (12.0-15.0); Immature Granulocyte Absolute 0.06 K/mm3 (0.00-0.031); Immature Granulocyte Percent A 0.5 % (0-0.5); Lymphocytes Percent Auto 9.1 % (18.3-44.2); Mean Corpuscular Hemoglobin 31.8 pg (26-34); Mean Corpuscular Volume 93.5 fl (80-100); Mean Platelet Volume 10.9 fl (7.4-10.4); Monocytes Absolute Auto 0.8 K/mm3 (0.1-0.6); Monocytes Percent Auto 6.8 % (2.6-8.5); Neutrophils Absolute Auto 10.1 K/mm3 (1.3-6.7); Neutrophils Percent Auto 83.4 % (45.5-73.1); Platelet Count Result 176 k/mm3 (150-375); Red Blood Count 3.55 M/mm3 (4.2-5.4); Red Cell Distribution Width 13.7 % (11.5-14.5); White Blood Count 12.1 K/mm3 (4.5-10.0)
[2024-03-16 06:27] LABS: Alanine Aminotransferase 16 U/L (6-35); Albumin Level 3.8 g/dL (3.5-5.1); Alkaline Phosphatase 99 U/L (38-126); Anion Gap 8 mmol/L (4-12); Aspartate Amino Transferase 30 U/L (14-36); Bilirubin,Total 0.4 mg/dL (0.2-1.3); Blood Urea Nitrogen 26 mg/dL (7-17); Calcium 8.7 mg/dL (8.4-10.2); Carbon Dioxide 22 mmol/L (22-30); Chloride 107 mmol/L (98-107); Estimated Glomerular Filt Rate 48; Glucose 109 mg/dL (65-110); Magnesium 1.7 mg/dL (1.6-2.3); Potassium 4.5 mmol/L (3.4-5.0); Sodium 137 mmol/L (137-145)
--- NOTE | 2024-03-16 07:42 | WPDANESPN ---
Anes - Prog Note Post-Op Date/Time: 03/16/24 07:42 Cardiovascular status: normal Respiratory status: normal Airway patency: baseline Mental status: baseline Post-Op hydration status: normal Vital Signs: Last Vital Signs Temp 36.7 C 03/16/24 05:48 Pulse 93 03/16/24 05:48 Resp 20 03/16/24 05:48 BP 142/76 H 03/16/24 05:48 Pulse Ox 99 03/16/24 05:48 O2 Del Method Room Air 03/15/24 20:14 O2 Flow Rate 8 03/15/24 14:55 Pain Score (VAS): 07/12 I/O: Intake & Output 03/15/24 03/15/24 03/16/24 15:59 23:59 07:59 Intake Total 150 350 250 Balance 150 350 250 Laboratory Tests 03/16/24 05:10 03/16/24 05:10 03/15/24 03/16/24 10:37 05:10 WBC 12.1 H RBC 3.55 L Hgb 11.3 L Hct 33.2 L MCV 93.5 MCH 31.8 MCHC 34.0 RDW 13.7 Plt Count 176 MPV 10.9 H Immature Gran % (Auto) 0.5 Neut % (Auto) 83.4 H Lymph % (Auto) 9.1 L [place] % (Auto) 6.8 Eos % (Auto) 0.0 Baso % (Auto) 0.2 Lymph # (Auto) 1.10 [place] # (Auto) 0.8 H Eos # (Auto) 0.0 Baso # (Auto) 0.0 Abs Immat Gran (auto) 0.06 H Absolute Neuts (auto) 10.1 H Absolute Nucleated RBC 0.000 Nucleated RBC % 0.0 Sodium 137 Potassium 4.5 Chloride 107 Carbon Dioxide 22 Anion Gap 8 BUN 26 H Creatinine 1.10 H Estim Creat Clear Calc Not Reportable Estimated GFR 48 L Glucose 109 Calcium 8.7 Magnesium 1.7 Total Bilirubin 0.4 AST 30 ALT 16 Alkaline Phosphatase 99 Total Protein 7.0 Albumin 3.8 Blood Type B Positive Antibody Screen Negative Post-procedural complaints: nausea and vomiting Patient Feedback: Patient satisfied with anesthetic care.
--- NOTE | 2024-03-16 08:01 | PM.DS ---
DS: Admitting Diagnosis Discharge Date 03/16/24 Admitting Diagnosis Knee arthritis DS: Discharge Diagnosis Discharge Diagnosis (1) Status post total right knee replacement: Code(s): Z96.651 - Presence of right artificial knee joint Status: Acute Assessment and Plan: Postop day 1: Right total knee arthroplasty. Patient tolerated procedure well. No complications. Pain manageable with pain medication. No numbness or tingling. We had a lengthy discussion regarding postoperative wound care, limitations, expectations, and exercises. Patient shows good understanding. He has had initial physical therapy and is tolerating it well. DVT prophylaxis: 81 mg baby aspirin b.i.d. for 14 days. Pain medication: Percocet. Prednisone. Will hold Celebrex due to kidney function. She should follow up with her PCP and drink lots of water daily prior to going back on it. Patient has followup appointment with Dr. Benavides in 3 weeks. DS: Summary Hospital Course Reason for hospitalization: Total knee arthroplasty Hospital Course: Patient tolerated procedure well. Has had initial PT/OT. Status at Discharge Functional status at discharge: uses cane/walker Overall status at discharge: patient is progressing back to baseline Time Spent with Patient Time attestation: Total time spent providing and/or coordinating discharge services: Exam Narrative: Overweight 73 y/o female. Resting comfortably in bed. Wearing compression socks bilaterally. Dressing intact with no drainage. Mild swelling. No ecchymosis. No erythema. No hematoma. Range of motion limited due to pain. Calf nontender. Neurologic status intact. No varicosities. Distal pulses palpable. DS: Data Data Completed and Pending Labs on day of discharge: Labs from last 24 hours 03/16/24 03/15/24 05:10 10:37 WBC 12.1 H RBC 3.55 L Hgb 11.3 L Hct 33.2 L MCV 93.5 MCH 31.8 MCHC 34.0 RDW 13.7 Plt Count 176 MPV 10.9 H Immature Gran % (Auto) 0.5 Neut % (Auto) 83.4 H Lymph % (Auto) 9.1 L [place] % (Auto) 6.8 Eos % (Auto) 0.0 Baso % (Auto) 0.2 Lymph # (Auto) 1.10 [place] # (Auto) 0.8 H Eos # (Auto) 0.0 Baso # (Auto) 0.0 Abs Immat Gran (auto) 0.06 H Absolute Neuts (auto) 10.1 H Absolute Nucleated RBC 0.000 Nucleated RBC % 0.0 Sodium 137 Potassium 4.5 Chloride 107 Carbon Dioxide 22 Anion Gap 8 BUN 26 H Creatinine 1.10 H Estim Creat Clear Calc Not Reportable Estimated GFR 48 L Glucose 109 Calcium 8.7 Magnesium 1.7 Total Bilirubin 0.4 AST 30 ALT 16 Alkaline Phosphatase 99 Total Protein 7.0 Albumin 3.8 Blood Type B Positive Antibody Screen Negative Discharge Plan Discharge Patient Disposition: Home, Self-Care Discharge Instructions: See green instruction sheets Patient Instructions: Help Prevent Suicide (GEN) Stand Alone Forms: General Discharge Instructions Follow-up/Referrals: Marissa Head PA [Physician Sales And Operations Trainee] - Discharge Medications: New prednisone 5 mg tablet 5 mg PO DAILY 21 Days Qty: 21 0RF aspirin 81 mg tablet,delayed release (DR/EC) 81 mg PO BID 14 Days Qty: 28 0RF oxycodone-acetaminophen 5-325 mg tablet 1 - 2 tablet PO Q4-6H PRN (Reason: pain) Qty: 30 0RF Continued albuterol sulfate 90 mcg/actuation HFA aerosol inhaler 2 inh inhalation Q4H PRN (Reason: shortness of breath or wheezing) Qty: 8.5 2RF loratadine [Claritin] 10 mg Tablet 10 mg PO DAILY multivitamin [Daily Multi-Vitamin] Tablet 1 tablet PO DAILY acetaminophen 650 mg Tablet Extended Release 650 mg PO Q12H PRN (Reason: Pain) Held celecoxib 200 mg capsule 200 mg PO DAILY Hold Instructions: Resume on 03/30/24. Hold until you discuss kidney function with your primary care provider. No Action lisinopril-hydrochlorothiazide 20-25 mg tablet 1 tablet PO DAILY Rx Instructions: TAKE 1 TABLET BY MOUTH DAILY omeprazole 40 mg capsule,delayed release(DR/EC) 40 mg PO DAILY montelukast 10 mg tablet 10 mg PO DAILY rosuvastatin 10 mg tablet 10 mg PO DAILY Anoro Ellipta 62.5-25 mcg/actuation blister with device 1 ea INHALATION DAILY
[2024-03-16] MEDS: LORATADINE 10 MG TABLET PO (08:37)
[2024-03-16] MEDS: hydroCHLOROthiazide 25 MG TABLET PO (08:37)
[2024-03-16] MEDS: lisinopriL 20 MG TABLET PO (08:37)
[2024-03-16] MEDS: PANTOPRAZOLE 40 MG TABLET PO (08:37)
[2024-03-16] MEDS: FAMOTIDINE 20 MG TABLET PO (08:37)
[2024-03-16] MEDS: SENNA/DOCUSATE SODIUM TABLET 2 TAB PO (08:37)
[2024-03-16] MEDS: ASPIRIN 81 MG ENTERIC TABLET PO (08:37)
[2024-03-16] MEDS: oxyCODONE/ACETAMINOPHEN (*CRX) 5-325 MG TABLET 1 TABLET PO (08:38)
[2024-03-16] MEDS: polyethylene glycoL 3350 17 GM POWD.PACK PO (08:39)
[2024-03-16 09:47] VITALS: BP 123/51; PULSE 91; RESP 18; TEMP 36.6; O2SAT 96
--- NOTE | 2024-03-16 10:16 | P.PNIM_ITS ---
Progress Note: A&P Assessment and Plan (1) Degenerative joint disease of right knee: Qualifiers: Osteoarthritis type: primary Qualified Code(s): M17.11 - Unilateral primary osteoarthritis, right knee Code(s): M17.11 - Unilateral primary osteoarthritis, right knee Status: Acute Assessment and Plan: * Postoperative day 1 status post right total knee arthroplasty. * Wound care, pain control, and DVT prophylaxis deferred to primary service. * PT/OT consulted. (2) Post-operative nausea and vomiting: Code(s): R11.2 - Nausea with vomiting, unspecified; Z98.890 - Other specified postprocedural states Status: Acute Assessment and Plan: * improved. Denies nausea at present. Tolerating food. (3) Asthma: Code(s): J45.909 - Unspecified asthma, uncomplicated Status: Acute Assessment and Plan: * No acute issues postoperatively. * Continue maintenance inhalers. (4) Hypertension: Code(s): I10 - Essential (primary) hypertension Status: Acute Assessment and Plan: * Blood 123/51 * Continue lisinopril-hydrochlorothiazide and monitor closely. (5) Gastroesophageal reflux disease: Code(s): K21.9 - Gastro-esophageal reflux disease without esophagitis Status: Acute Assessment and Plan: * Continue PPI. (6) Mixed hyperlipidemia: Code(s): E78.2 - Mixed hyperlipidemia Status: Acute Assessment and Plan: * Continue receive statin. * LFT's normal. Plan Subjective Date/time seen: 03/16/24 10:16 Interval history: Patient sitting up in chair. Patient denies pain, nausea, or vomiting. Patient reports eating and drinking well. Patient has ice machine pad wrapped around surgical site. Patient to be discharged this afternoon. Review of Systems Review of Systems: All systems reviewed & are unremarkable except as noted in HPI and below Exam Const: General: comfortable and no acute distress Neck: Neck: supple Resp: Effort & Inspection: normal respiratory effort Auscultation: clear to auscultation bilaterally Cardio: Rate: regular rate Rhythm: regular rhythm GI: GI Palp: Yes Soft to palpation Auscultation: normal bowel sounds Skin: General skin exam: no rashes or lesions noted Extrem: General: normal to inspection Other: Right knee dressing is intact. Leg wrapped in ice pack circulating. She is neurovascularly intact distal to the surgical site. Psych: Affect: normal affect Objective Data Vital Signs Vital Signs: Vital Signs - 24 hr 03/15/24 11:19 03/15/24 14:25 03/15/24 14:40 Temperature 98.0 F 98.6 F Pulse Rate 69 102 H 102 H Respiratory Rate 16 17 18 Blood Pressure 135/61 164/100 H 158/88 H Pulse Oximetry 99 100 100 Oxygen Delivery Room Air Simple Face Mask Simple Face Mask Oxygen Flow Rate 8 8 03/15/24 14:55 03/15/24 15:10 03/15/24 15:25 Temperature Pulse Rate 89 99 93 Respiratory Rate 18 20 12 Blood Pressure 153/87 H 173/74 H 159/83 H Pulse Oximetry 100 95 94 Oxygen Delivery Simple Face Mask Room Air Room Air Oxygen Flow Rate 8 03/15/24 15:40 03/15/24 15:55 03/15/24 16:03 Temperature 97.7 F Pulse Rate 98 93 92 Respiratory Rate 10 L 10 L 14 Blood Pressure 145/74 H 141/73 H 136/81 Pulse Oximetry 95 94 97 Oxygen Delivery Room Air Room Air Room Air Oxygen Flow Rate 03/15/24 16:20 03/15/24 16:35 03/15/24 16:05 Temperature 97.9 F 97.6 F 97.9 F Pulse Rate 91 100 95 Respiratory Rate 16 16 16 Blood Pressure 137/79 174/91 H 162/78 H Pulse Oximetry 92 96 96 Oxygen Delivery Oxygen Flow Rate 03/15/24 18:05 03/15/24 21:15 03/16/24 01:07 Temperature 97.8 F 97 F L 97.3 F L Pulse Rate 100 96 100 Respiratory Rate 16 18 18 Blood Pressure 168/88 H 147/81 H 141/84 H Pulse Oximetry 95 94 98 Oxygen Delivery Oxygen Flow Rate 03/15/24 20:14 03/16/24 05:48 03/16/24 07:38 Temperature 98.1 F Pulse Rate 93 Respiratory Rate 20 Blood Pressure 142/76 H Pulse Oximetry 99 Oxygen Delivery Room Air Room Air Oxygen Flow Rate 03/16/24 09:47 Temperature 97.8 F Pulse Rate 91 Respiratory Rate 18 Blood Pressure 123/51 L Pulse Oximetry 96 Oxygen Delivery Oxygen Flow Rate Intake/Output Intake/Output: Intake & Output 03/13/24 03/14/24 03/15/24 03/16/24 23:59 23:59 23:59 23:59 Intake Total 500 490 Balance 500 490 Meds/Results Medications: Active Medications Generic Name Dose Route Start Last Admin Trade Name Freq PRN Reason Stop Dose Admin Acetaminophen 650 mg 03/15/24 18:00 03/16/24 05:31 Acetaminophen 325 Mg Tablet PO 650 mg Q6HR MARGARITA Administration Albuterol 2 puff 03/15/24 16:03 Albuterol Sulfate (*Sp) Aerosol 1 Puff INHALATION Q4H PRN shortness of breath or wheezing Aspirin 81 mg 03/15/24 21:00 03/16/24 08:37 Aspirin 81 Mg Enteric Tablet PO 81 mg Q12HR MARGARITA Administration Cyclobenzaprine HCl 10 mg 03/15/24 16:03 Cyclobenzaprine Hcl 10 Mg Tablet PO Q8H PRN Spasms Diphenhydramine HCl 25 mg 03/15/24 16:03 Diphenhydramine Hcl Inj 50 Mg/Ml Vial IV PUSH Q6H PRN Itching Famotidine 20 mg 03/15/24 21:00 03/16/24 08:37 Famotidine 20 Mg Tablet PO 20 mg Q12HR MARGARITA Administration Hydrochlorothiazide 25 mg 03/16/24 09:00 03/16/24 08:37 Hydrochlorothiazide 25 Mg Tablet PO 25 mg QAM MARGARITA Administration Hydromorphone HCl 1 mg 03/15/24 16:03 Hydromorphone Hcl Inj (*Crx) 1 Mg/Ml Syr IV PUSH Q2H PRN Breakthrough Pain Rated 7-10 or NPO Hydromorphone HCl 0.5 mg 03/15/24 16:03 Hydromorphone Hcl Inj (*Crx) 1 Mg/Ml Syr IV PUSH Q2H PRN Breakthrough Pain Rated 4-6 or NPO Cefazolin Sodium 2 gm in 50 mls @ 100 mls/hr 03/15/24 20:00 03/16/24 04:12 Ancef 2 Gm/D5w 50 Ml IVPB 03/16/24 12:29 Infused Q8H MARGARITA Infusion Lisinopril 20 mg 03/16/24 09:00 03/16/24 08:37 Lisinopril 20 Mg Tablet PO 20 mg QAM MARGARITA Administration Loratadine 10 mg 03/16/24 09:00 03/16/24 08:37 Loratadine 10 Mg Tablet PO 10 mg DAILY MARGARITA Administration Montelukast Sodium 10 mg 03/15/24 21:00 03/15/24 21:26 Montelukast Sodium 10 Mg Tablet BY MOUTH 10 mg HS MARGARITA Administration Naloxone HCl 0.1 mg 03/15/24 16:03 Naloxone Hcl 0.4 Mg/Ml Vial IV PUSH Q2M PRN Opiate Reversal Ondansetron HCl 4 mg 03/15/24 16:03 03/15/24 16:44 Ondansetron Inj 4 Mg/2 Ml Vial IV PUSH 4 mg Q4H PRN Administration Nausea And Vomiting Oxycodone/Acetaminophen 1 tablet 03/15/24 16:03 03/16/24 08:38 Oxycodone/Acetaminophen (*Crx) 5-325 Mg Tablet PO 1 tablet Q4H PRN Administration Pain Rated 4-6 Oxycodone/Acetaminophen 1 tab 03/15/24 16:03 Oxycodone/Acetaminophen (*Crx) 10-325 Mg Tablet PO Q6H PRN Pain Rated 7-10 Pantoprazole Sodium 40 mg 03/15/24 17:25 03/16/24 08:37 Pantoprazole 40 Mg Tablet PO 40 mg QAM MARGARITA Administration Pantoprazole Sodium 40 mg 03/16/24 09:00 03/16/24 08:39 Pantoprazole 40 Mg Tablet PO Not Given QAM MARGARITA Polyethylene Glycol 17 gm 03/16/24 09:00 03/16/24 08:39 Polyethylene Glycol 3350 17 Gm Powd.Pack PO 17 gm QAM MARGARITA Administration Prednisone 5 mg 03/15/24 17:00 03/15/24 17:50 Prednisone 5 Mg Tablet PO 5 mg DAILY@1700 MARGARITA Administration Rosuvastatin Calcium 10 mg 03/15/24 21:00 03/15/24 21:25 Rosuvastatin 10 Mg Tablet BY MOUTH 10 mg HS MARGARITA Administration Senna/Docusate Sodium 2 tab 03/15/24 17:00 03/16/24 08:37 Senna/Docusate Sodium Tablet PO 2 tab BID MARGARITA Administration Tramadol HCl 50 mg 03/15/24 16:03 Tramadol Hcl (*Crx) 50 Mg Tablet PO Q4H PRN Pain Rated 1-3 Umeclidinium/Vilanterol 1 puff 03/16/24 09:00 03/16/24 08:26 Umeclidinium/Vilanterol 62.5-25 Mcg Ellipta INHALATION Not Given DAILY MARGARITA Umeclidinium/Vilanterol 1 puff 03/16/24 08:00 03/16/24 08:25 Umeclidinium/Vilanterol 62.5-25 Mcg Ellipta INHALATION Not Given DAILYRT [facility] Radiology Results: ITS Impressions Knee X-Ray 03/15/24 15:07 IMPRESSION: 1. Right total knee arthroplasty, negative for postoperative purposes. Labs Labs: Laboratory Results - last 24 hr 03/15/24 03/16/24 10:37 05:10 WBC 12.1 H RBC 3.55 L Hgb 11.3 L Hct 33.2 L MCV 93.5 MCH 31.8 MCHC 34.0 RDW 13.7 Plt Count 176 MPV 10.9 H Immature Gran % (Auto) 0.5 Neut % (Auto) 83.4 H Lymph % (Auto) 9.1 L [place] % (Auto) 6.8 Eos % (Auto) 0.0 Baso % (Auto) 0.2 Lymph # (Auto) 1.10 [place] # (Auto) 0.8 H Eos # (Auto) 0.0 Baso # (Auto) 0.0 Abs Immat Gran (auto) 0.06 H Absolute Neuts (auto) 10.1 H Absolute Nucleated RBC 0.000 Nucleated RBC % 0.0 Sodium 137 Potassium 4.5 Chloride 107 Carbon Dioxide 22 Anion Gap 8 BUN 26 H Creatinine 1.10 H Estim Creat Clear Calc Not Reportable Estimated GFR 48 L Glucose 109 Calcium 8.7 Magnesium 1.7 Total Bilirubin 0.4 AST 30 ALT 16 Alkaline Phosphatase 99 Total Protein 7.0 Albumin 3.8 Blood Type B Positive Antibody Screen Negative Quality VTE Prophylaxis VTE prophylaxis: mechanical ordered
[2024-03-16 13:48] VITALS: BP 135/67; PULSE 83; RESP 19; TEMP 36.7; O2SAT 95
== END 2024-03-16 15:32 | disposition home or self-care (01) ==
LOC: ANHSURGERY 10:37 → ANH2MED 16:08
PROVIDERS: Physician Assistant Surgical; PCP Nurse Practitioner; Visit Provider Orthopaedic Surgery
PROC: (CPT 27447; principal; 2024-03-15 12:00)
DX: M17.11 Unilateral primary osteoarthritis, right knee (principal); R11.2 Nausea with vomiting, unspecified; J45.909 Unspecified asthma, uncomplicated; I10 Essential (primary) hypertension; E78.2 Mixed hyperlipidemia; K21.9 Gastro-esophageal reflux disease without esophagitis; Z79.51 Long term (current) use of inhaled steroids; Z79.82 Long term (current) use of aspirin; E66.9 Obesity, unspecified; Z68.37 Body mass index [BMI] 37.0-37.9, adult
CPT/HCPCS: 27447; 36415; 73560; 80053; 83735; 85025; 86850; 86900; 86901; 97110; 97161; 97165; 97530; 97535; C1776; A9270; C1713; J0171; J0690; J1100; J1171; J1885; J2003; J2270; J2405; J2550; J2704; J2795; J3010; J7030; J7120; J7512

== ENCOUNTER 2024-05-26 12:39 | Outpatient (CLI) | payer MEDICARE, MEDICAID, SELFPAY ==
--- NOTE | ~2024-05-26 | XR_ITS ---
EXAMINATION: XR knee RT 3V DATE: 05/26/2024 13:06 INDICATION: Aftercare following joint replacement surgery. TECHNIQUE: 3 views of right knee including standing views were obtained. COMPARISON: Right knee radiographs 09/17/2023, 03/15/2024 FINDINGS: There is a total right knee arthroplasty with patellar resurfacing in near-anatomic alignme nt. No fracture. No periprosthetic lucency to suggest loosening or infection. No knee joint effusion. IMPRESSION: 1. Total right knee arthroplasty in near-anatomic alignment. Reviewed, dictated and finalized at location B. EL ASSEMBLER HELPER
--- OUTSIDE RECORDS SUMMARY | 2024-05-28 00:25 | XMS_ITS | Clinical Summary ---
Author Organization [facility] Address [address] [address] Phone Care Team Providers Care Inside B2B Sales Name Role Phone Francis Joe MD Primary Care Provider [phone] Samir Simons DO Unavailable [phone] Allergies No known active allergies Medications polyethylene glycol (MIRALAX) Powder Use entire 255g bottle with 64oz of clear liquid as directed for colonoscopy prep. 255 g 0 7 Active lisinopril-hydr oCHLOROthiazide (PRINZIDE, ZESTORETIC) 10-12.5 MG Tablet TK 1 T PO QD 1 7 Active montelukast (SINGULAIR) 10 MG Tablet Take 10 mg by mouth every evening. Active omeprazole (PRILOSEC) 40 MG CAPSULE DELAYED RELEASE TAKE 1 CAPSULE BY MOUTH DAILY 90 Cap 8 Active Family History Medical History Relation Name Comments Heart Disease Father Congestive Heart Failure Mother Heart Disease Mother Uterine Cancer Mother Relation Name Status Comments Father Mother Social History Tobacco Use Types Packs/Day Years Used Date Smoking Tobacco: Never Smokeless Tobacco: Never Alcohol Use Standard Drinks/Week Comments No 0 (1 standard drink = 0.6 oz pur e alcohol) Comments Unknown Sex and Gender Information Value Date Recorded Sex Assigned at Not on file Legal Sex Female 11:39 AM CDT Gender Identity Not on file Sexual Orientation Not on file Plan of Treatment Health Maintenance Due Date Last Done Comments DEXA Bone Density 1950 Hepatitis C Virus (HCV) Screening 1950 TdaP Immunization 1950 Colonoscopy 1993 Colorectal Cancer Screening 1993 Cologuard 1998 Immunochemical Fecal Occult Blood 1998 Pneumococcal Immunization (5 0+ years) (1 of 1 - PCV) 1998 Zoster Immunization (1 of 2) 1998 Respiratory Syncytial Virus (RSV) Immunization (Adult) (1 - 1-dose 75+ series) 10/15/2023 Influenza Immunization (#1) 2024 SARS-COV-2 Immunization ( - season) 2024 Hepatitis B Immunization Aged Out No longer eligible based on patient's age to complete this topic Meningococcal Immunization (ACWY) Aged Out No longer eligible based on patient's age to complete this topic Rotavirus Immunization Aged Out No lo nger eligible based on patient's age to complete this topic Insurance MEDICARE [place]ICAID [place] Care Teams Inside B2B Sales Relationship Specialty Start Date End Date Francis Joe MD [address] [place] [address] PCP - General Internal Medicine 08/23/16 Samir Simons DO [address] [place] [address] Gastroenterology 05/12/17
--- OUTSIDE RECORDS SUMMARY | 2024-05-28 00:25 | XMS_ITS | Clinical Summary ---
Author Organization [facility] Address [address] [place] [address]. [place], [place] [id number] [place] [id number] Care Team Providers Care Orange Grower Name Role Phone Unavailable Primary Care Provider Unavailabl e Social History Tobacco Use Types Packs/Day Years Used Date Smoking Tobacco: Never Assessed Comments Unknown Sex and Gender Information Value Date Recorded Sex Assigned at Not on file Legal Sex Female 5:14 PM CDT Gender Identity Not on file Sexual Orientation Not on file Plan of Treatment Health Maintenance Due Date Last Done Comments Colorectal Cancer Screening Colonoscopy (10 Years) 1948 Hepatitis C 1966 DTaP, Tdap and Td Vaccines ( 1 - Tdap) 10/15/1967 Zoster Vaccines (1 of 2) 1998 Dexa Scan (General) 2013 Pneumococcal Vaccine: 65+ Ye ars (1 of 1 - PCV) 2013 RSV Immunization or 60+ Years (1 - 1-dose 75+ series) 10/15/2023 COVID-19 Vaccine ( - 2023-2 5 season) 2024 Influenza Adult (#1) 2024 Meningococcal Vaccine Aged Out No annia ariel eligible based on patient's age to complete this topic RSV Immunizations Under 20 Months Aged Out No longer eligible based on patient's age to complete this topic
== END 2024-05-26 12:40 | disposition home or self-care (01) ==
PROVIDERS: PCP Nurse Practitioner; Visit Provider Orthopaedic Surgery
DX: Z47.1 Aftercare following joint replacement surgery (principal)
CPT/HCPCS: 73562

== ENCOUNTER 2025-01-04 08:40 | Outpatient (CLI) | payer MEDICARE, MEDICAID, SELFPAY ==
--- OUTSIDE RECORDS SUMMARY | 2025-01-04 08:45 | XMS_ITS | Clinical Summary ---
Author Organization [facility] Address [address] [place] [address] Care Team Providers Care Military Technician Name Role Phone Unavailable Primary Care Provider Unavailabl e Social History Tobacco Use Types Packs/Day Years Used Date Smoking Tobacco: Never Assessed Comments Unknown Sex and Gender Information Value Date Recorded Sex Assigned at Not on file Legal Sex Female 5:14 PM CDT Gender Identity Not on file Sexual Orientation Not on file Plan of Treatment Health Maintenance Due Date Last Done Comments Hepatitis C 1966 DTaP, Tdap and Td Vaccines ( 1 - Tdap) 10/15/1967 Pneumococcal Vaccine: 50+ Ye ars (1 of 1 - PCV) 1998 Zoster Vaccines (1 of 2) 1998 Dexa Scan (General) 2013 RSV Immunization or 60+ Years (1 - 1-dose 75+ series) 10/15/2023 COVID-19 Vaccine (2023-2 5 season) 2025 Meningococcal B Vaccine Aged Out No l onger eligible based on patient's age to complete this topic Meningococcal Vaccine Aged Out No annia ariel eligible based on patient's age to complete this topic RSV Immunizations Under 20 Months Aged Out No longer eligible based on patient's age to complete this topic
--- OUTSIDE RECORDS SUMMARY | 2025-01-04 08:45 | XMS_ITS | Clinical Summary ---
Author Organization [facility] Address [address] [address] Phone Care Team Providers Care Guard Manager Name Role Phone Francis Joe MD Primary Care Provider [phone] Samir Simons DO Unavailable [phone] Allergies No known active allergies Medications polyethylene [...] Due Date Last Done Comments Hepatitis C Virus (HCV) Screening 1950 TdaP Immunization 1948 Pneumococcal Immunization (5 0+ years) (1 of 1 - PCV) 1998 Zoster Immunization (1 of 2) 1998 Respiratory Syncytial Virus (RSV) Immunization (Adult) (1 - 1-dose 75+ series) 10/15/2023 SARS-COV-2 Immunization (2023- season) 2024 Influenza Immunization (#1) 2025 Hepatitis B Immunization Aged Out No longer eligible based on patient's age to complete this topic Human Papillomavirus (HPV) Immunization Aged Out No longer eligible b ased on patient's age to complete this topic Meningococcal Immunization (ACWY) Aged Out No longer eligible based on patient's age to complete this topic Rotavirus Immunization Aged Out No lo nger eligible based on patient's age to complete this topic Insurance MEDICARE [place]ICAID [place] Care Teams Guard Manager Relationship Specialty Start Date End Date Francis Joe MD PCP - General Internal Medicine 08/23/16 Samir Simons DO [phone] (work) Gastroenterology 05/12/17
[2025-01-04 09:53] LABS: Alanine Aminotransferase 19 U/L (6-35); Albumin Level 4.6 g/dL (3.5-5.1); Alkaline Phosphatase 131 U/L (38-126); Anion Gap 10 mmol/L (4-12); Aspartate Amino Transferase 33 U/L (14-36); Bilirubin,Total 0.5 mg/dL (0.2-1.3); Blood Urea Nitrogen 29 mg/dL (7-17); Calcium 9.8 mg/dL (8.4-10.2); Carbon Dioxide 26 mmol/L (22-30); Chloride 103 mmol/L (98-107); Cholesterol 182 mg/dL (0-200); Estimated Glomerular Filt Rate 48; Glucose 92 mg/dL (65-110); HDL Direct 42 mg/dL; Potassium 4.5 mmol/L (3.4-5.0); Sodium 139 mmol/L (137-145); Total Protein 8.6 g/dL (6.3-8.2); Triglycerides 209 mg/dL (<150)
== END 2025-01-04 08:41 | disposition home or self-care (01) ==
LOC: ANHLAB 08:41
PROVIDERS: PCP Nurse Practitioner; Visit Provider Nurse Practitioner
DX: E78.5 Hyperlipidemia, unspecified (principal)
CPT/HCPCS: 36415; 80053; 80061